=== PATIENT | female | born 1985 | race Two or more races ===

== ENCOUNTER 2016-05-19 13:54 | Emergency (ER) | payer MEDICAID ==
[~2016-05-19] VITALS: Ht 162.6 cm; Wt 72.6 kg
[2016-05-19 14:04] VITALS: BP 113/82
== END 2016-05-19 15:15 | disposition left against medical advice (07) ==
LOC: EDBD 13:54 → ER 14:06
DX: F10.10 Alcohol abuse, uncomplicated (principal); F41.9 Anxiety disorder, unspecified; Z53.21 Procedure and treatment not carried out due to patient leaving prior to being seen by health care provider

== ENCOUNTER 2016-05-20 01:03 | Emergency (ER) | payer MEDICAID ==
[~2016-05-20] VITALS: Ht 162.6 cm; Wt 86.2 kg
[2016-05-20 01:25] VITALS: BP 129/89
== END 2016-05-20 03:12 | disposition left against medical advice (07) ==
LOC: EDUNIT# 01:03 → EDBD 01:03 → ER 01:05
DX: T50.992A Poisoning by other drugs, medicaments and biological substances, intentional self-harm, initial encounter (principal); Y92.89 Other specified places as the place of occurrence of the external cause; Z53.21 Procedure and treatment not carried out due to patient leaving prior to being seen by health care provider